=== PATIENT | male | born 2005 | race Hispanic/Latino ===

== ENCOUNTER 2025-03-07 19:24 | Emergency (ER) | payer SELFPAY ==
[~2025-03-07] VITALS: Ht 177.8 cm; Wt 101.2 kg
--- NOTE | 2025-03-07 19:45 | ERN ---
ED Note History of Present Illness Stated Complaint: C/O "TROUBLE BREATHING" Chief Complaint: Shortness of Breath Time Seen by MD: 19:36 Time Seen by Midlevel: 19:36 Dictation: Mr. Fritz is a 19 year old male with history of obesity who presented to the emergency department this evening for evaluation of shortness of breath. He reports four days of fatigue, general weakness, and shortness of breath. He states that he was seen on Friday at an Urgent care clinic and diagnosed with Symptoms persisted prompting him to come to the hospital for re-evaluation. Allergies: Coded Allergies: No Known Allergies (Unverified Allergy, Unknown, 03/07/25) Past Medical History Past Medical History: Other (obesity) Surgical History: None RN Note Reviewed/Agreed w/PFSH: Yes Review of System Dictation REVIEW OF SYSTEMS: CONSTITUTIONAL: Patient denies fevers, chills, sweats and weight changes. Reports fatigue. EYES: Patient denies any visual symptoms. EARS, NOSE, AND THROAT: No difficulties with hearing. No symptoms of rhinitis or sore throat. CARDIOVASCULAR: Patient denies chest pains, palpitations, orthopnea and paroxysmal nocturnal dyspnea. RESPIRATORY: Reports shortness of breath. GI: No nausea, vomiting, diarrhea, constipation, abdominal pain, hematochezia or melena. : No urinary hesitancy or dribbling. No nocturia or urinary frequency. No abnormal urethral discharge. MUSCULOSKELETAL: No myalgias or arthralgias. NEUROLOGIC: No chronic headaches, no seizures. Patient denies numbness, tingling or weakness. PSYCHIATRIC: Patient denies problems with mood disturbance. No problems with anx iety. ENDOCRINE: No excessive urination or excessive thirst. DERMATOLOGIC: Patient denies any rashes or skin changes. Initial Vital Sign VS Vital Signs Date Time Temp Pulse Resp B/P (MAP) Pulse Ox O2 Delivery O2 Flow Rate FiO2 03/07/25 19:27 98.1 83 20 138/70 97 Room Air 03/07/25 19:36 0 21 Physical Exam Dictation Vital signs: Reviewed. Afebrile Constitutional: No acute distress. Non-toxic appearing. Head/Face: Normocephalic, atraumatic. Eyes: Periorbital areas with no swelling, redness, or edema. Lids and lashes are normal. Conjunctival injection is absent. Sclera anicteric. Pupils equal, round, reactive to light. ENT: Pinnas intact and no signs of trauma or erythema. Ear canals clear and no discharge. TMs no erythema. No nasal discharge or bleeding noted. Oropharynx with no exudate, redness, swelling, masses, exudates, or evidence of obstruction. Uvula midline. Mucous membranes moist. Neck: Trachea midline, no masses palpated, and no cervical lymphadenopathy. No swelling. Supple, full range of motion. Chest/Axilla: No tenderness, no crepitus, no paradoxical movement, no retractions. Cardiovascular: Regular rate, regular rhythm, no murmur, no gallops. Symmetric pulses. No peripheral edema. Twelve lead EKG reflects a sinus, rate 67; no ST elevation or depression. BP 138 for 70. Respiratory: Respirations even and unlabored. Lung sounds clear; no wheezes, rales or rhonchi. Room air SpO2 97% Gastrointestinal: Inspection is normal. No distention is appreciated. Bowel sounds are normal. No mass or organomegaly . There is no tenderness. No rebound. No rigidity. No voluntary or involuntary guarding. No Dutton's sign. Neurological: Normal speech, gross motor function intact, gross sensory function intact. No focal weakness/Paresthesia. Musculoskeletal/Extremities: All extremities have full range of motion, no pain or tenderness on palpation. Symmetric pulses. Integumentary: Intact. Skin is normal color, warm and dry. Cap refill less than 2 seconds. Results (Laboratory/Radiology) Laboratory/Radiology Laboratory Tests Test 03/07/25 19:32 03/07/25 20:47 Influenza Type A Antigen Negative For Type A Influenza Type B Antigen Negative For Type B SARS-CoV-2, RNA, NAAT NEGATIVE SARS CoV-2 White Blood Count 9.4 K/uL (4.8-10.8) Red Blood Count 5.34 MIL/uL (4.50-6.20) Hemoglobin 16.3 g/dL (14.0-18.0) Hematocrit 46.4 % (42-54) Mean Corpuscular Volume 86.9 fL (80-100) Mean Corpuscular Hemoglobin 30.5 pg (27.0-33.0) Mean Corpuscular Hemoglobin Concent 35.1 g/dL (32.0-36.0) Red Cell Distribution Width 12.6 % (11.0-15.5) Platelet Count 215 K/uL (130-400) Mean Platelet Volume 12.3 fL (7.5-10.5) H Immature Granulocyte % (Auto) 0.2 % (0-1) Neutrophils (%) (Auto) 71.4 % (40.0-77.0) Lymphocytes (%) (Auto) 21.1 % (21.0-51.0) Monocytes (%) (Auto) 6.7 % (3.0-13.0) Eosinophils (%) (Auto) 0.4 % (0.0-8.0) Basophils (%) (Auto) 0.2 % (0.0-5.0) Neutrophils # (Auto) 6.7 K/uL (1.8-7.7) Lymphocytes # (Auto) 2.0 K/uL (1.0-4.8) Monocytes # (Auto) 0.6 K/uL (0.1-1.0) Eosinophils # (Auto) 0.04 K/uL (0.00-0.70) Basophils # (Auto) 0.02 K/uL (0.00-0.20) Absolute Immature Granulocyte (auto 0.02 K/uL (0-1) Nucleated Red Blood Cells 0.0 % (0.0-0.19) Sodium Level 139 mmol/L (136-145) Potassium Level 4.0 mmol/L (3.5-5.1) Chloride Level 103 mmol/L (101-111) Carbon Dioxide Level 28 mmol/L (21-32) Blood Urea Nitrogen 6 mg/dL (7-18) L Creatinine 0.8 mg/dL (0.5-1.3) Glomerular Filtration Rate Calc 131 mL/min (>90) Random Glucose 113 mg/dL (70-105) H Total Calcium 9.9 mg/dL (8.5-10.1) Troponin I High Sensitivity 5 ng/L (4-75) Labs Reviewed?: Yes EKG Comment: EKG Interpretation: Time Reviewed: 2041 Ventricular rate: 67 bpm ND Interval: 110 ms QRS duration: [address] segment elevation or depression. Clinical impression: sinus rhythm EKG Reviewed and interpreted by Dr. Oliver X-RAY Comment: PATIENT: RENAY FRITZ MR#: [id number] : 2005 SEX: M AGE: 19 LOCATION: [facility] ORDER 44 STATUS: REG ER REPORT#: [id number] SERVICE 43 REASON: shortness of breath ORDERING PHYSICIAN: DARLIN HERNANDEZ NP PROCEDURE: CXR2VW - CHEST 2VWS EXAM: CR Chest, 1 View. CLINICAL HISTORY: shortness of breath COMPARISON: None provided. FINDINGS: LUNGS: There is no mass, infiltrate, or acute pulmonary abnormality. PLEURAL SPACES: No evidence of pleural effusion or pneumothorax. MEDIASTINUM: The cardiomediastinal silhouette is within normal limits. BONES: No acute osseous abnormality. IMPRESSION: No acute cardiopulmonary pathology is evident. /[place] DICTATED BY: VIBHA BURK MD DATE: 03/07/252130 ELECTRONICALLY SIGNED BY: VIBHA BURK MD DATE: 03/07/252130 ED Course ED Course Orders Procedure Category Date Status Time Influenza Type A & B, LAB 03/07/25 Complete Rapid 19:32 Covid Rna Naat LAB 03/07/25 Complete 19:32 Chest 2vws RAD 03/07/25 Resulted 19:44 Cbc With Differential LAB 03/07/25 Complete 20:39 Basic Metabolic Panel LAB 03/07/25 Complete 20:39 12 Lead Ekg Tracing- EKG 03/07/25 Logged Technical 20:39 Troponin I High LAB 03/07/25 Complete Sensitivity 20:39 Vital Signs Date Time Temp Pulse Resp B/P (MAP) Pulse Ox O2 Delivery O2 Flow Rate FiO2 03/07/25 19:36 98.1 80 16 135/70 98 Room Air* 0 21 03/07/25 19:27 98.1 83 20 138/70 97 Room Air Medical Decision Making MDM MDM: Differential diagnosis: reactive airway disease, influenza, COVID, CAP, ACS, anemia Rationale: Tests considered and ordered secondary to shared decision making include: lab, EKG, CXR Previous outside records reviewed: Old ER visits. Risk of complication and/or morbidity or mortality of patient management: None Medications-Per medication reconciliation Need for hospitalization: Patient does not meet criteria for hospitalization. Need for emergency major/minor surgery: No There are no social concerns with this patient. Prescription drug management: Cetirizine Prescriptions will include symptomatic care Patient's prior external medical records from other ER visits were reviewed by me as indicated. Prior testing and results from previous visits were reviewed. Prior tests were taken into account with medical decision making and resource utilization, independent historian/historians were used to obtain complete medical history. I independently interpreted the test that were performed, results were reviewed by me and considered findings on radiology if ordered. Medical management and examination interpretation discussions were had by me with other qualified healthcare professionals as indicated for the patient's care. DX & DISP Disposition: Discharge Departure Impression: Primary Impression: Environmental allergies Condition: Stable Scripts Cetirizine HCl (Cetirizine HCl) 10 Mg Tablet 1 TAB PO DAILY for allergy symptoms for 30 Days, #30 TAB 0 Refills Prov: DARLIN HERNANDEZ NP 03/07/25 Additional Instructions: You were evaluated today for shortness of breath that has been ongoing since exposure to possible irritants at work; drivable insulation. Your chest x-ray, EKG lab work, and heart enzymes were all normal today which is reassuring. Your symptoms may be due to airway irritation or an allergic type reaction from inhaling dust or other were place materials. Use your inhaler as previously prescribed two puffs every 4-6 hours as needed for shortness of breath. Start cetirizine 10 mg daily. Ensure that you were wearing your mask when working. Return to the emergency department or seek medical care urgently if you exper ience worsening shortness of breath, wheezing, chest pain/tightness, difficulty speaking/swallowing, swelling to the face/lips/throat, or lightheadedness/fainting. Time of Disposition: 21:41 DARLIN HERNANDEZ NP Mar 07, 2025 19:45
[2025-03-07 20:00] LABS: INFLUENZA TYPE A Negative For Type A (NEGATIVE); INFLUENZA TYPE B Negative For Type B (NEGATIVE)
[2025-03-07 20:31] LABS: SARS-CoV-2, RNA, NAAT NEGATIVE SARS CoV-2 (NEGATIVE)
--- NOTE | 2025-03-07 20:32 | HMCIMG ---
EXAM: CR Chest, 1 View. CLINICAL HISTORY: shortness of breath COMPARISON: None provided. FINDINGS: LUNGS: There is no mass, infiltrate, or acute pulmonary abnormality. PLEURAL SPACES: No evidence of pleural effusion or pneumothorax. MEDIASTINUM: The cardiomediastinal silhouette is within normal limits. BONES: No acute osseous abnormality. IMPRESSION: No acute cardiopulmonary pathology is evident. /[place]
[2025-03-07 20:55] LABS: IMMATURE GRANULOCYTE ABSOLUTE 0.02 K/uL (0-1); NUCLEATED RED BLOOD CELLS 0.0 % (0.0-0.19); PLATELET COUNT (AUTO) 215 K/uL (130-400); RED BLOOD CELL COUNT(AUTO) 5.34 MIL/uL (4.50-6.20); RED CELL DISTRIBUTION WIDTH 12.6 % (11.0-15.5); WHITE BLOOD COUNT (AUTO) 9.4 K/uL (4.8-10.8)
[2025-03-07 21:04] LABS: CREATININE 0.8 mg/dL (0.5-1.3); GLOMERULAR FILTR. RATE CALC 131.0 mL/min (>90); GLUCOSE,RANDOM 113.0 mg/dL (70-105); SODIUM SERUM 139.0 mmol/L (136-145); UREA NITROGEN, BLOOD 6.0 mg/dL (7-18)
[2025-03-07] MEDS ORDERED: CETI10TA57 PO (21:39)
[2025-03-07 22:01] VITALS: BP 138/70; PULSE 76; RESP 16; TEMP 98.1; O2SAT 98
--- NOTE | 2025-03-08 06:37 | EKG ---
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
== END 2025-03-07 22:06 | disposition home or self-care (01) ==
LOC: EDH 19:24
DX: J30.2 Other seasonal allergic rhinitis (principal); Z20.822 Contact with and (suspected) exposure to COVID-19
CPT/HCPCS: 36415; 71046; 80048; 84484; 85025; 87635; 87804; 93005; 99285